=== PATIENT | male | born 1995 | race Caucasian/White ===

== ENCOUNTER 2020-05-19 07:07 | Emergency (ER) | payer OTHER, SELFPAY ==
[2020-05-19 07:13] VITALS: BP 144/98; PULSE 103; RESP 18; TEMP 35.7; O2SAT 100
--- NOTE | 2020-05-19 07:20 | ED.GENADULT ---
HPI - General Adult General Chief complaint: Unspecified Stated complaint: LUMP ON MY TESTICLE Time Seen by Provider: 05/19/20 07:13 Source: patient Mode of arrival: ambulatory Limitations: no limitations History of Present Illness HPI narrative: Patient is a 21-year-old male complaining of a bump on his left testicle started 3 to 4 days ago. Patient denies any pain or increased swelling since then. Patient actually states that it has gone down remarkably. No other complaints. Denies testicular pain, scrotal swelling, injury to the area, or urinary symptoms. Denies penile discharge. Related Data Home Medications Medication Instructions Recorded Confirmed No Home Medications 05/19/20 05/19/20 Allergies Allergy/AdvReac Type Severity Reaction Status Date / Time No Known Allergies Allergy Verified 05/19/20 07:19 Review of Systems Review of Systems: All systems reviewed & are unremarkable except as noted in HPI and below PMFSH Social History Social History Smoking status: Never smoker Alcohol intake: never Gender identity (if verbalized by the patient): Male Exam Const: General: cooperative, healthy appearing, comfortable, no acute distress, well developed, alert and awake; No confusion Orientation/consciousness: oriented to person, oriented to place, oriented to time, patient oriented x3 and No confusion Limitations: no limitations HENMT: Head: normal to inspection, normocephalic and atraumatic General nose exam: Normal external nose present Face and sinus: normal facial exam Mouth: Yes Normal oral and palatal mucosa present and Yes lip normal Eyes: General: appearance normal, both eyes and all related structures Pupils: Equal, round and reactive pupils present EOM: EOMs intact bilaterally Neck: Neck: normal visual inspection Resp: Effort & Inspection: normal respiratory effort, able to speak in complete sentences, no respiratory distress and not tachypneic Auscultation: clear to auscultation bilaterally, no crackles, no rales, no rhonchi and no wheezes Cardio: Rate: regular rate Rhythm: regular rhythm GI: Inspection: normal to inspection GI Palp: No abdominal tenderness, Yes Soft to palpation, No Tenderness to palpation present (GI), No Guarding due to palpation present (GI), No Rigid due to palpation and No Rebound tenderness present Auscultation: normal bowel sounds : General: Yes no CVA tenderness Male General Exam: Yes normal external exam, No edema, No erythema, No inguinal lymphadenopathy, No Genital lesions present, No perineal induration and No tenderness Testes: Testes normal, testicular lie normal, no testicular mass, no testicular swelling and no testicular tenderness Other: Negative for any lump or mass seen or palpated on any of his testicles. Negative for tenderness on palpation. Negative for swelling or redness. Back/Spine/Pelvis: Back: no CVA tenderness Skin: General skin exam: normal color, no rashes or lesions noted, elasticity normal and turgor normal Neuro: General: oriented to person, oriented to place, oriented to time, patient oriented x3, tone normal, moves all extremities, Normal light touch and pain sensation, no meningeal signs, no focal motor deficits and No confusion Cranial nerves: Yes Equal, round and reactive pupils present Speech: No Abnormal speech present Sensory Exam: No Sensory deficit (Neuro) Extrem: General: normal to inspection, full ROM and capillary refill normal Psych: Appearance: grossly normal and well kempt Mental Status: mental status grossly normal Speech and movement: Normal speech and movement present Affect: normal affect Attitude: cooperative Thought process: Normal thought process present Thought content: Yes Normal thought content present Insight: Good insight present (Psych) Judgement: Good judgement present (Psych) Course Vital Signs Vital signs: Vital Signs Temperature 35.7 C L 05/19/20 07:13 Pulse Rate 103 H 1
== END 2020-05-19 07:29 | disposition home or self-care (01) ==
PROVIDERS: Emergency Provider Emergency Medicine; PCP Nurse Practitioner Family
DX: N50.9 Disorder of male genital organs, unspecified (principal)
CPT/HCPCS: 99281